=== PATIENT | male | born 1985 | race Caucasian/White ===

== ENCOUNTER → 2020-10-09 06:18 | Outpatient (CLI) | payer OTHER, SELFPAY ==
--- NOTE | 2020-10-09 06:43 | MRI_ITS ---
STUDY: MRI LEFT ANKLE WITHOUT CONTRAST REASON FOR EXAM: Left ankle and calf pain after left ankle injury, evaluate Achilles tendon rupture. TECHNIQUE: Standardized fat and water weighted pulse sequences were obtained in all 3 orthogonal planes. COMPARISON: None. FINDINGS: There is edema in the subcutis adipose space. There is a very small volume of fluid in the distal posterior tibialis tendon sheath (T2 axial image 23). The posterior tibialis tendon is morphologically normal. Normal flexor digitorum longus tendon. There is fluid in the flexor hallucis longus tendon sheath proximal and distal to the sustentaculum eric (inversion recovery sagittal images 9, 10). Normal peroneus longus and brevis tendons. Normal tibialis anterior tendon. Normal extensor hallucis longus tendon. Normal extensor digitorum longus tendons. There is a complete tear of the Achilles tendon approximately 4.5 cm from the calcaneal insertion with a gap of approximately 0.8 cm (inversion recovery sagittal images 11-14). Normal plantar fascia. Normal plantar calcaneal tubercles. Normal intrinsic muscles of the rearfoot. Normal distal tibiofibular syndesmotic ligamentous complex. Normal lateral ligamentous complex. Normal subtalar ligaments and sinus tarsi. Normal deltoid ligamentous complexes. Normal plantar calcaneonavicular (spring) ligament. Normal tibiotalar articulation. Normal talar dome. Normal subtalar articulations. Normal talonavicular articulation. Normal calcaneocuboid articulation. Normal navicular-cuneiform articulations. MRI/Lower Ext Joint Only (Routine) IMPRESSION: Tear of the Achilles tendon in the watershed zone. Very mild posterior tibialis tenosynovitis. Fluid in the flexor hallucis longus tendon sheath. Electronically Signed: Corbin Gordillo MD at 7:59 EST Tel , Service support ,
== END ==
PROVIDERS: Referring Provider Podiatrist Foot & Ankle Surgery; Visit Provider Podiatrist Foot & Ankle Surgery
DX: S86.012A Strain of left Achilles tendon, initial encounter (principal); M25.572 Pain in left ankle and joints of left foot; X58.XXXA Exposure to other specified factors, initial encounter; Y93.9 Activity, unspecified; Y92.9 Unspecified place or not applicable; Y99.9 Unspecified external cause status
CPT/HCPCS: 73721

== ENCOUNTER → 2020-10-12 15:02 | Outpatient (CLI) | payer OTHER, SELFPAY ==
[2020-10-12 17:35] LABS: Absolute Lymphocyte Count 2.12 X10^3/uL (0.83-4.51); Absolute Neutrophil Count 3.6 X10^3/uL (2.0-7.7); Basophil# 0.02 X10^3/uL; Basophil% 0.3 % (0-1); Eosinophils% 1.5 % (0-5); Hematocrit 45.5 % (40-54); Hemoglobin 15.6 g/dL (13.0-16.5); Lymphocyte # 2.12 X10^3/ul (4.0); Lymphocyte % 32.6 % (19-41); Mean Corp Hgb Conc 34.3 g/dL (32-36); Mean Corpuscular Hgb 29.7 pg (27.0-32.0); Mean Corpuscular Volume 86.5 fL (80-94); Mean Platelet Vol. 10.9 fl (6.2-12.0); Monocyte# 0.64 X10^3/uL; Monocyte% 9.8 % (0-10); NRBC Flagged by Analyzer 0 % (0-5); Neutrophil # 3.62 X10^3/uL (2.7-7.7); Neutrophil % 55.6 % (47-70); Platelet Count 190 K/mm3 (150-450); RBC Distribution Width CV 11.6 % (11.6-14.6); RBC Distribution Width SD 36.7 fl (35.1-43.9); Red Blood Count 5.26 M/mm3 (4.6-6.2); White Blood Count 6.5 K/mm3 (4.4-11.0)
[2020-10-12 17:52] LABS: ALB/GLOB Ratio 1.1 RATIO (0.9-2.4); AST(SGOT) 18 U/L (15-37); Alanine Aminotransfer ALT/SGPT 28 U/L (16-61); Alkaline Phosphatase 77 U/L (45-117); Anion Gap 6 (5-15); BUN 17 mg/dL (7-18); BUN/Creat Ratio 17.1 RATIO (10-20); Calcium,Total 9.3 mg/dL (8.5-10.1); Chloride 106 mmol/L (98-107); EST Glomerular Filtration Rate 89 mL/min (>60); Est Glom Filt Rate - Afr Amer 108 mL/min (>60); Globulin 3.6 g/dL (2.2-4.2); Glucose 87 mg/dL (74-106); Potassium 3.7 mmol/L (3.5-5.1); Protein, Total 7.6 g/dL (6.4-8.2); Sodium Level 139 mmol/L (136-145)
== END ==
PROVIDERS: Visit Provider Family Medicine
DX: Z01.818 Encounter for other preprocedural examination (principal)
CPT/HCPCS: 36415; 80053; 85025

== ENCOUNTER 2020-10-15 06:09 | Day surgery (SDC) | payer OTHER, SELFPAY ==
[2020-10-15] VITALS (7 sets, daily range): BP systolic 91–141; BP diastolic 52–91; PULSE 57–86; RESP 16; TEMP 36–36.6; O2SAT 95–100; BMI 23.2
[2020-10-15] MEDS: Lactated Ringers 1,000 ML 100 ML IV ×2 (06:56→09:23)
--- NOTE | 2020-10-15 07:26 | PCM.OPRPT ---
Problem List (1) Achilles rupture, left Status: Acute (2) Pain in left ankle Status: Acute Report of Operation Date of Procedure: 10/15/20 Pre-Operative Diagnosis: rupture left achilles tendon. pain left ankle Post-Operative Diagnosis: same Surgery/Procedure Performed:: repair of ruptured achilles tendon left lower extremity Description of Surgical Findings:: hemostasis: thigh tourniquet at 350 mmHg suture: 3-0, 4-0 monocryl 10 cc 0.5% bupivacaine plain Materials: Arthrex PARS Achilles repair midsubstance repair system with calcaneal anchors staff development coordinator: Elaine Preciado - surgeon: Elaine Preciado DPM. Type of Anesthesia:: General/Regional - with popliteal block left lower extremity, Local Specimen's removed: none Estimated Blood Loss (mL): <10 Description of Procedure: Indications: Patient is a 35-year-old male who presents to the office last week with ruptured Achilles tendon left lower extremity after playing basketball the previous Monday. Injury was October 04, 2020. Patient was placed on Cam boot with crutches for nonweightbearing at that time and discussed with patient the need to repair the ruptured tendon surgically. An MRI was obtained showing a 0.8 cm gap of the Achilles tendon with complete rupture in the watershed area. Discussed that surgical repair provide better outcomes than conservative care. Patient agreed to proceed with the surgical procedure. Discussed all risks, benefits, alternatives, and complications including but not limited to infection delayed healing nonhealing need for further surgery with the patient. No guarantees were given or implied. Patient agreed to proceed with the procedure. All questions answered. Description of the procedure Patient seen in the preoperative holding her chart where the chart was reviewed and patient was examined and all questions were answered to patient satisfaction. A popliteal block was then applied to the operative lower extremity per anesthesia. Patient was then transferred to the OR and general anesthesia was administered. A thigh tourniquet was applied to the operative extremity but not inflated at this time. The patient was then transferred to the OR table in the prone position. The operative lower extremity was then prepped and draped in usual sterile fashion. 10 cc of 0.05% bupivacaine plain was injected in a V-block type fashion around the posterior Achilles. The lower extremity was then elevated exsanguinated with Esmarch bandage and the thigh tourniquet inflated at 350 mmHg and then lowered down into the sterile field. Attention was then directed to the operative limb posteriorly where the palpable dell of the Achilles tendon rupture was palpated in the watershed area. On the proximal side of the rupture a transverse incision was drawn out with a skin scribe approximately 2 cm in length. This was then carried out with a #15 blade through the epidermis and relates into the subcutaneous tissue with all vital neurovascular structures retracted or cauterized as necessary. Blunt dissection was utilized to dissect down to the level of the peritenon. The sural nerve was visualized and retracted out of the operative field and protected. The peritenon was then sharply transected in transverse manner with a #15 blade. The proximal stump of the Achilles tendon was then grasped with an Allis clamp and freed up of all surrounding hematoma and soft tissue adhesions with a Penfield elevator. Any seen hematoma was removed from the field. The PARS device was then inserted on the medial lateral aspect of the Achilles tendon. Suture was then passed percutaneously through the jig following manufacture guidelines with major account representative in the room. After placement of the suture the jig was removed with a suture remaining within the peritenon to help prevent any nerve entrapments. Locking suture technique was then employed following manufacture guidelines. All suture was then noted to have adequate purchase within the tendon without any creep noted. Attention was then directed to the posterior aspect of the heel where 2 stab incisions approximately 1.5 cm apart at the level of the Achilles insertion in the calcaneus were drawn out with a skin scribe and carried out with #15 blade through the epidural and dural layers into subcutaneous tissue. Blunt dissection was then utilized to dissect down to the level of bone. A drill was then utilized to make holes in the calcaneus for anchoring the suture from the proximal aspect of the Achilles rupture with Arthrex swivel locks. Once this was done and tapped the sutures were then passed through a banana loop through the distal aspect of the Achilles ruptured through the stab incisions. The foot was then placed in 10 degrees of equinus more so than the contralateral limb. Should be noted that this reapproximated the severed Achilles tendon edges back together. The sutures were then placed to the swivel lock and inserted into the calcaneus following manufacture guidelines in order to hold this correction. This was done to both the medial and lateral aspects of the Achilles insertion with respective sutures. It should be noted that once this was accomplished the foot rested in slight equinus approximately the same as the contralateral limb. A Ortega test was noted to be negative where compression of the calf elicited a plantar flexor response of the foot. All sites were then flushed with copious muscle normal sterile saline. The peritenon was reapproximated with 3-0 Monocryl. 4-0 Monocryl was utilized for subcutaneous and subcuticular skin closure in a running suture fashion to both the Achilles transverse incision and the stab incisions. The site was then dressed with Steri-Strips, Betadine soaked Adaptic, 4 x 4's, Kerlix, cast padding, and posterior splint in equinus and Dewayne wrap. The thigh tourniquet was deflated with prompt brisk hyperemic response noted to all digits patient's operative leg. Patient was then transferred from the OR to PACU with vital signs stable and best as intact. After. Postoperative monitoring patient will be discharged with the following written and oral postoperative instructions. 1. patient is to keep dressing clean dry intact 2. Patient is to follow-up with Dr. Preciado in 1 week in office 3. Patient is to remain nonweightbearing to the operative limb 4. Patient is to take all medications as prescribed and was given prescriptions for pain [place] which was sent to patient's pharmacy of choice. Patient is also to take aspirin for preventing blood clots 5. Patient has cam boot and crutches and is to bring them to follow-up appointment 6. Patient is to watch for signs of infection or blood clot including nausea, fever, vomiting, chills, chest pain, shortness of breath, or calf pain and if seen patient is contact doctor's office or go to the emergency room - Complications none - Admit VTE Documentation VTE Present on Admission: Yes VTE Mechan Device Prophylaxis: SCD's VTE Pharm Prophylaxis ordered?: Yes
--- NOTE | 2020-10-15 07:34 | PCM.DC.POD ---
Discharge Diet: No Restrictions Discharge Activity: May not drive while taking narcotic pain medications., Use Crutches Weight Bearing Status: No weight bearing - left foot Keep extremity elevated above heart level: Operative Extremity, Left Leg Call your doctor if your incision/area has: Sudden Increased Bleeding, Increased Pain/ Swelling, Foul Smelling Discharge Call your doctor if you observe: Fever of 101 or Higher, Shortness of breath, Dizziness, Chest pain, Increased palpitations (irregular heartbeat), Uncontrolled pain Cleanse incision/area with: Do not get Incision Wet, Keep Dressing Clean & Dry Additional Dressing/Incision Instructions:: leave dressing clean, dry, intact until follow up appointment. If gets wet by accident please call office Allergies/Adverse Reactions: Allergies No Known Allergies Allergy (Verified 10/14/20 08:14) Medications to take at Discharge Hydrocodone Bitart/Apap 5-325 [[place] 5MG-325MG] 1 tab PO Q6H PRN PRN 7 Days #40 tab 10/15/20 The following prescriptions were given: Hydrocodone Bitart/Apap 5-325 [[place] 5MG-325MG] 1 tab PO Q6H PRN PRN 7 Days #40 tab PRN Reason: Pain Transmission Status: Received by [facility] Primary Care Physician: Care Physician,No Primary [Primary Care Provider] - Test Results: Test results from this visit will be discussed in further detail at your follow-up appointment, if applicable. Please Follow Up With: Elaine Preciado DPM When: 1 week Proposed Discharge Date: 10/15/20
[2020-10-15] MEDS: Bupivacaine Mpf 0.5% 30 ML VIAL (07:50)
[2020-10-15] MEDS: Cefazolin 2 GM in 0.9% Normal Saline 100 ML IV (07:52)
--- NOTE | 2020-10-15 09:40 | RAD_ITS ---
STUDY: X-RAY - LEFT FOOT CLINICAL: Postop Achilles tendon repair. TECHNIQUE: 3 view(s) of the foot. COMPARISON: MRI images 10/09/2020. FINDINGS: There is an anchor in the posterior tuberosity of the calcaneus. Otherwise, unremarkable talus, calcaneus, and tarsal bones. Normal visualized subtalar, talonavicular, calcaneocuboid, tarsal and tarsometatarsal articulations. Normal metatarsi. Normal metatarsophalangeal joint of the great toe. Normal tibial and fibular sesamoid bones. Normal interphalangeal joint of the great toe. Normal phalanges of the great toe. Normal second through fifth metatarsophalangeal joints. Normal interphalangeal joints and phalanges of the lesser toes. There is an overlying cast. RAD/Foot min 3 Views IMPRESSION: Unremarkable postoperative x-ray examination of the left foot. Electronically Signed: Corbin Gordillo MD at 13:29 EST Tel , Service support ,
== END 2020-10-15 11:07 | disposition home or self-care (01) ==
LOC: SDC 06:09 → AC 06:10
PROVIDERS: Referring Provider Podiatrist Foot & Ankle Surgery; Visit Provider Podiatrist Foot & Ankle Surgery
PROC: (CPT 27650; principal; 2020-10-15 07:15)
DX: S86.012A Strain of left Achilles tendon, initial encounter (principal); Z20.822 Contact with and (suspected) exposure to COVID-19; X58.XXXA Exposure to other specified factors, initial encounter; Y93.67 Activity, basketball; Y92.9 Unspecified place or not applicable; Y99.9 Unspecified external cause status
CPT/HCPCS: 27650; 64450; 73630; 87426; C1713; C9803; J7120; J2405

== ENCOUNTER 2021-01-08 07:30 | Outpatient (RCR) | payer OTHER, SELFPAY ==
[2020-10-15 06:39] VITALS: BMI 23.2
--- NOTE | 2020-11-17 13:43 | HP.PTEVAL_ITS ---
Patient's Visit Information CAMILO PIMENTEL is a 35 year old M referred to Physical Therapy by Dr. Elaine Preciado DPM with a diagnosis of LEFT ACHILLES RUPTURE S/P SURGERY. Date of Evaluation: 11/16/20 Physical Therapist: Ramesh Garcia, PT, Cert MDT, OCS - Visit Plan Frequency: 3x /Week Duration: -6-8WEEKS Plan: S/P ACHILLES TENDON REPAIR 10/15. CAM BOOT WBAT. WBAT PROGRESS TO TENNIS SHOE WITH HEEL LIFT AND GRADUALLY LESSEN HEEL LIFT. PT INTERVENTIONS ROM, STRETCHING ,GRADED WITH TENNIS SHOE ANKLE STRENGTHENING,WB ACTIVITIES PROGRESS TO FUNCTIONAL STRENGTHENING,BIKE,NUSTEP,CP ,PROPRIOCEPTION - Subjective This 35 y/o male presents to physical therapy with left achilles rupture s/p surgery. Patient seen had MRI.Patient intially tear achilles tendon surgery on Oct 04 playing [employer] then underwent s/p achilles tendon repair on 10/15/20. Intially had spint soft cast 1week then placed in boot and NWB with cruthes for 2 weeks then 2weeks PWB with Cam boot and currently WBAT with CAM boot. Patient seen 11/13/20 RTD in 6WEEKS. Patient denies parathesia/tingling. Patient sleepin okay at night.Patient has just tightness no pain. Patient condtion of achilles tendon surgery impair function. VOCATION: activities manager. SOCIAL: - Objective FRONTAL PLANE MECHANICS: normal arch. GAIT: ambulates with Cam boot antalgic gait. NEURO: intact. EDEMA: trimalleor 57.8 cm. AROM: dorsiflexion 30 degrees from 0,planterflexion 65 degrees,eversion 5 degrees,inversion 25 degrees. PROPRIOCEPTION: NT. MMT: dorsiflexion 3+/5,planterflexion 2+/5,inversion/eversion 4-/5. FLXABILITY G-S: MOD/SEVERE TIGHT - Goals Goal 1:: I with HEP Goal Time Frame: 8-12 Weeks Goal 2:: Patient to noramalize gait pattern Goal Time Frame: 8-12 Weeks Goal 3:: Patient to improve AROM dorsiflexion 0 degrees or > to improve gait Goal Time Frame: 8-12 Weeks Goal 4:: Proprioception symmtrical left to right to improve gait Goal Time Frame: 8-12 Weeks Goal 5:: Patient increase strength left ankle 4/5 except G-S to 4-/5 to improve function. Goal Time Frame: 8-12 Weeks Goal 6:: Patient to improve LFES score by 10 points or > to improve gait and QOL. Goal Time Frame: 8-12 Weeks - Rehabilitation Potential Physical Therapy Diagnosis: Patient tore achilles tendon thus underwent s/p achilles tendon repair 10/15/20 with decrease ROM ,strength edema impairs gait ,proprioception and function thus will need skilled PT Rehabilitation Potential: Good - Anticipated Interventions Patient/Client Instruction: Educate patient on: Condition, Plan of Care For the Purpose of:: To decrease pain, To increase ROM, To improve muscle performance and motor function, To improve ability to perform ADL's, To increase tolerance to activity/condition/position, To improve ability of physical actions for home/community/work/leisure, To improve gait and locomotor functions, To improve health of tissue, To decrease soft tissue restriction, To increase flexibility/ROM Therapeutic Exercise to Include: Strength training, Balance training, Flexibilty training, Gait and locomotor training, Passive ROM, Active ROM Comment: GRADUAL WB WITH TENNIS SHOE ,STRENGTHENING For the Purpose of:: To decrease pain, To increase ROM, To improve muscle performance and motor function, To increase tolerance to activity/condition/po sition, To improve ability of physical actions for home/community/work/leisure, To improve gait and locomotor functions, To improve health of tissue, To decrease soft tissue restriction, To increase flexibility/ROM, To improve endurance, To improve safety with gait, To reduce risk of recurrence Thank you for the opportunity to evaluate your patient. For Medicare and Medicare HMO plans, please review the plan of care and approve it. It will need to be FAXED BACK to us at [phone] for Medicare purposes. For Medicare only, by signing this I certify the plan of care. Please let me know if there are questions or concerns regarding this plan of care. Physician Signature: Date:
--- NOTE | 2020-11-18 08:09 | HP.PTEVAL_ITS ---
Patient's Visit Information CAMILO PIMENTEL is a 35 year old M referred to Physical Therapy by FLORENCE De PazM with a diagnosis of LEFT ACHILLES RUPTURE S/P SURGERY. Date of Evaluation: 11/16/20 Physical Therapist: Ramesh Garcia, PT, Cert MDT, OCS - Visit Plan Frequency: 3x /Week Duration: -6-8WEEKS Plan: S/P ACHILLES TENDON REPAIR 10/15. CAM BOOT WBAT. WBAT PROGRESS TO TENNIS SHOE WITH HEEL LIFT AND GRADUALLY LESSEN HEEL LIFT. PT INTERVENTIONS ROM, STRETCHING ,GRADED WITH TENNIS SHOE ANKLE STRENGTHENING,WB ACTIVITIES PROGRESS TO FUNCTIONAL STRENGTHENING,BIKE,NUSTEP,CP ,PROPRIOCEPTION and MANUAL THERAPY - Subjective This 35 y/o male presents to physical therapy with left achilles rupture s/p surgery. Patient seen had MRI.Patient intially tear achilles tendon surgery on Oct 04 playing [employer] then underwent s/p achilles tendon repair on 10/15/20. Intially had spint soft cast 1week then placed in boot and NWB with cruthes for 2 weeks then 2weeks PWB with Cam boot and currently WBAT with CAM boot. Patient seen 11/13/20 RTD in 6WEEKS. Patient denies parathesia/tingling. Patient sleepin okay at night.Patient has just tightness no pain. Patient condtion of achilles tendon surgery impair function. VOCATION: customer consulting manager. SOCIAL: - Objective FRONTAL PLANE MECHANICS: normal arch. GAIT: ambulates with Cam boot antalgic gait. NEURO: intact. EDEMA: trimalleor 57.8 cm. AROM: dorsiflexion 30 degrees from 0,planterflexion 65 degrees,eversion 5 degrees,inversion 25 degrees. PROPRIOCEPTION: NT. MMT: dorsiflexion 3+/5,planterflexion 2+/5,inversion/eversion 4-/5. FLXABILITY G-S: MOD/SEVERE TIGHT - Goals Goal 1:: I with HEP Goal Time Frame: 8-12 Weeks Goal 2:: Patient to noramalize gait pattern Goal Time Frame: 8-12 Weeks Goal 3:: Patient to improve AROM dorsiflexion 0 degrees or > to improve gait Goal Time Frame: 8-12 Weeks Goal 4:: Proprioception symmtrical left to right to improve gait Goal Time Frame: 8-12 Weeks Goal 5:: Patient increase strength left ankle 4/5 except G-S to 4-/5 to improve function. Goal Time Frame: 8-12 Weeks Goal 6:: Patient to improve LFES score by 10 points or > to improve gait and QOL. Goal Time Frame: 8-12 Weeks - Rehabilitation Potential Physical Therapy Diagnosis: Patient tore achilles tendon thus underwent s/p achilles tendon repair 10/15/20 with decrease ROM ,strength edema impairs gait ,proprioception and function thus will need skilled PT Rehabilitation Potential: Good - Anticipated Interventions Patient/Client Instruction: Educate patient on: Condition, Plan of Care For the Purpose of:: To decrease pain, To increase ROM, To improve muscle performance and motor function, To improve ability to perform ADL's, To increase tolerance to activity/condition/position, To improve ability of physical actions for home/community/work/leisure, To improve gait and locomotor functions, To improve health of tissue, To decrease soft tissue restriction, To increase flexibility/ROM Therapeutic Exercise to Include: Strength training, Balance training, Flexibilty training, Gait and locomotor training, Passive ROM, Active ROM Comment: GRADUAL WB WITH TENNIS SHOE ,STRENGTHENING For the Purpose of:: To decrease pain, To increase ROM, To improve muscle performance and motor function, To increase tolerance to ac tivity/condition/position, To improve ability of physical actions for home/community/work/leisure, To improve gait and locomotor functions, To improve health of tissue, To decrease soft tissue restriction, To increase flexibility/ROM, To improve endurance, To improve safety with gait, To reduce risk of recurrence Thank you for the opportunity to evaluate your patient. For Medicare and Medicare HMO plans, please review the plan of care and approve it. It will need to be FAXED BACK to us at [phone] for Medicare purposes. For Medicare only, by signing this I certify the plan of care. Please let me know if there are questions or concerns regarding this plan of care. Physician Signature: Date:
--- NOTE | 2021-06-01 07:53 | HP.PTDCSUM ---
It has been my pleasure to treat CAMILO PIMENTEL referred by Dr. Elaine Preciado DPM, with the diagnosis of LEFT ACHILLES RUPTURE S/P SURGERY for a total of 17 visit(s). Discharge Date: Please see the following information for a summary of their discharge status. Subjective: Doing well plan to RTD will need order to cont % Improvement: 75 Objective/Function: GAIT: mild decrease stance abhijit improved heel strike to push off. PROPRIOCEPTION: SLS INTACT. AROM: DF 5 DEGREES ,PF 60 DEGREES,INVERSION 40 DEGREES,INVERSION 5 DEGREES. MMT: ankle 4/5 ,g-s 3+/5 Goal 1:: I with HEP Goal 2:: Patient to noramalize gait pattern Goal 3:: Patient to improve AROM dorsiflexion 0 degrees or > to improve gait Goal 4:: Proprioception symmtrical left to right to improve gait Goal 5:: Patient increase strength left ankle 4/5 except G-S to 4-/5 to improve function. Goal 6:: Patient to improve LFES score by 10 points or > to improve gait and QOL. Plan: rtd If there are questions or concerns regarding this patient's physical therapy, please feel free to call me at [phone]. Thank you for the referral of this patient. Sincerely, Ramesh Garcia PT, Cert MDT, OCS Balance/Gait/Functional tests - Balance/Special Test Scores Lower Extremity Functional Score: 34
== END 2021-01-08 19:00 | disposition home or self-care (01) ==
LOC: PT 07:30
PROVIDERS: Referring Provider Podiatrist Foot & Ankle Surgery; Visit Provider Podiatrist Foot & Ankle Surgery
DX: Z98.890 Other specified postprocedural states (principal)
CPT/HCPCS: 97110; 97140; 97162